=== PATIENT | male | born 1965 | race Hispanic/Latino ===

== ENCOUNTER 2017-12-01 21:43 | Emergency (ER) | payer OTHER ==
[~2017-12-01] VITALS: Ht 180.3 cm; Wt 99.8 kg
[2017-12-01 21:57] VITALS: BP 160/106
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
--- NOTE | 2017-12-01 22:06 | NUR ---
PD [facility] [facility] IN PT ROOM AT THIS TIME.
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
[2017-12-01] MEDS ORDERED: TRIPLE ANTIBIOTIC OINTMENT TP ONE (22:19)
--- NOTE | 2017-12-01 23:01 | NUR ---
[facility] IN ROOM TO SPEAK WITH PATIENT.
--- NOTE | 2017-12-01 23:10 | NUR ---
[facility] ADDITIONAL OFFICERS AT BEDSIDE AT THIS TIME
[2017-12-01 23:15] VITALS: BP 160/106
== END 2017-12-01 23:14 | disposition home or self-care (01) ==
LOC: ER 21:43
DX: S40.212A Abrasion of left shoulder, initial encounter (principal); Z88.6 Allergy status to analgesic agent; Y04.0XXA Assault by unarmed brawl or fight, initial encounter; Y93.89 Activity, other specified; Y92.098 Other place in other non-institutional residence as the place of occurrence of the external cause; Y99.8 Other external cause status
CPT/HCPCS: 99283